=== PATIENT | male | born 1980 | race Caucasian/White ===

== ENCOUNTER 2018-06-09 16:58 | Emergency (ER) | payer MEDICAID ==
[2018-06-09 19:58] VITALS: BP 101/60
--- NOTE | 2018-06-09 20:15 | EDM.PDOC ---
ED HPI GENERAL MEDICAL PROBLEM - General Chief Complaint: General Stated Complaint: LYMES Time Seen by Provider: 06/09/18 19:50 Source of Information: Reports: Patient History Limitations: Reports: No Limitations - History of Present Illness INITIAL COMMENTS - FREE TEXT/NARRATIVE: 38-year-old male with generalized malaise, body aches and low-grade fevers which started 5-6 days after a tick was pulled off of his upper back. He has been diagnosed with Lyme's disease in the past and is sure it is redeveloping the disease. He is in for antibiotics, does not want testing as he is self-pay. No nausea or vomiting, no headache. Onset: Gradual Severity: Mild Associated Symptoms: Reports: Other (Generalized malaise and muscle aches are his main complaint ). Denies: Headaches, Nausea/Vomiting neck and generalized Pain Score (Numeric/FACES): 6 - Related Data Allergies Allergy/AdvReac Type Severity Reaction Status Date / Time No Known Allergies Allergy Verified 06/09/18 20:15 Home Meds: Home Meds NK [No Known Home Meds] 06/09/18 [History] Past Medical History - Past Health History Medical/Surgical History: Denies Medical/Surgical History ED ROS GENERAL - Review of Systems Review Of Systems: See Below Constitutional: Reports: Chills, Malaise HEENT: Reports: No Symptoms Respiratory: Denies: Shortness of Breath, Cough Cardiovascular: Denies: Chest Pain GI/Abdominal: Denies: Abdominal Pain, Nausea, Vomiting Musculoskeletal: Reports: Neck Pain, Muscle Pain, Muscle Stiffness Skin: Reports: Other Neurological: Denies: Headache Psychiatric: Reports: No Symptoms ED EXAM, GENERAL - Physical Exam Exam: See Below Exam Limited By: No Limitations General Appearance: Alert, No Apparent Distress Eye Exam: Bilateral Eye: Normal Inspection Head: Atraumatic Neck: Normal Inspection, Other (Some mild soreness with rotation). No: Lymphadenopathy (R), Lymphadenopathy (L) Respiratory/Chest: No Respiratory Distress Neurological: Alert, Oriented Psychiatric: Normal Affect, Normal Mood Skin Exam: Warm, Dry (No rash seen at this time) Course - Vital Signs Last Recorded V/S: Last Vital Signs Temp 98.0 F 06/09/18 20:18 Pulse 70 06/09/18 20:18 Resp 16 06/09/18 20:18 BP 101/60 06/09/18 20:18 Pulse Ox 96 06/09/18 20:18 - Re-Assessments/Exams Free Text/Narrative Re-Assessment/Exam: 06/09/18 20:14 Patient declined any lab work. He'll be placed on doxycycline 100 twice a day and given 20 day supply. He understands he needs to recheck in the next 4-6 days if worsening despite treatment. Departure - Departure Time of Disposition: 20:25 Disposition: Home, Self-Care 01 Condition: Good Clinical Impression: Acute Lyme disease - Discharge Information Instructions: Lyme Disease Referrals: PCP,None [Primary Care Provider] - Forms: ED Department Discharge Care Plan Goals: Take antibiotic twice a day for a full course if improving. Recheck in the next 4-6 days if not improving despite treatment, and return anytime if worsening.
== END 2018-06-09 20:25 | disposition home or self-care (01) ==
LOC: JP.ED 16:58
DX: A69.20 Lyme disease, unspecified (principal)
CPT/HCPCS: 99283

== ENCOUNTER 2020-03-11 16:40 | Emergency (ER) | payer SELFPAY ==
[2020-03-11 16:54] VITALS: BP 139/86; PULSE 111
[2020-03-11] MEDS ORDERED: LORazepam 1 MG Tab PO ONE (17:26)
--- NOTE | 2020-03-11 17:32 | EDM.PDOCBH ---
ED HPI GENERAL MEDICAL PROBLEM - General Chief Complaint: Behavioral/Psych Stated Complaint: PANIC ATTACK Time Seen by Provider: 03/11/20 17:26 Source of Information: Reports: Patient History Limitations: Reports: No Limitations - History of Present Illness INITIAL COMMENTS - FREE TEXT/NARRATIVE: pt arrived feeling very panicky. He has been making arrangements for his 19 year old son who was killed in a 4 bauer accident. He has been hyperventilating and he is having difficulty relaxing. He is having the fathers day. Onset: Gradual Duration: Day(s): Location: Reports: Generalized, Other (pt has been struggling since the accident. ) Associated Symptoms: Reports: Shortness of Breath, Weakness - Related Data Allergies Allergy/AdvReac Type Severity Reaction Status Date / Time No Known Allergies Allergy Verified 06/09/18 20:15 Home Meds: Home Meds NK [No Known Home Meds] 06/09/18 [History] Past Medical History - Past Health History Medical/Surgical History: Denies Medical/Surgical History Neurological History: Reports: Other (See Below) Other Neuro History: trigeminal neuroligia Dermatologic History: Reports: Cellulitis - Infectious Disease History Infectious Disease History: Reports: Chicken Pox Social & Family History - Tobacco Use Smoking Status *Q: Current Every Day Smoker Years of Tobacco use: 3 Packs/Tins Daily: 0.5 - Caffeine Use Caffeine Use: Reports: None - Recreational Drug Use Recreational Drug Use: No ED ROS GENERAL - Review of Systems Review Of Systems: See Below Constitutional: Reports: No Symptoms HEENT: Reports: No Symptoms Respiratory: Reports: Shortness of Breath Cardiovascular: Reports: No Symptoms Endocrine: Reports: No Symptoms GI/Abdominal: Reports: No Symptoms Psychiatric: Reports: Anxiety, Other (pt is having severe panic attacks. ) ED EXAM, BEHAVIORAL HEALTH - Physical Exam Exam: See Below Text/Narrative:: pt is here very panicky. He is not ablw to relax. He is planning the for his 19 year old son. Exam Limited By: No Limitations General Appearance: Alert, Anxious, Moderate Distress Ears: Normal TMs Nose: Normal Inspection Throat/Mouth: Normal Inspection Head: Atraumatic Neck: Normal Inspection Respiratory/Chest: No Respiratory Distress Cardiovascular: Regular Rate, Rhythm COURSE, BEHAVIORAL HEALTH COMP - Course Vital Signs: Last Vital Signs Temp 37.0 C 03/11/20 16:53 Pulse 111 H 03/11/20 16:53 Resp 18 03/11/20 16:53 BP 139/86 03/11/20 16:53 Pulse Ox 98 03/11/20 16:53 Orders, Labs, Meds: Medications Discontinued Medications Generic Name Dose Route Start Last Admin Trade Name Freq PRN Reason Stop Dose Admin Lorazepam 1 mg 03/11/20 17:26 03/11/20 17:30 Ativan PO 03/11/20 17:27 1 mg ONETIME ONE Administration Medical Clearance: 03/11/20 17:31 pt was given ativan 1 mg to get some relaxation. Departure - Departure Time of Disposition: 17:55 Disposition: Home, Self-Care 01 Condition: Fair Clinical Impression: Panic attack - Discharge Information Referrals: PCP,None [Primary Care Provider] - Forms: ED Department Discharge Care Plan Goals: pt will follow up with his regular Dr when the is over, ativan 1 mg q6h prn for marked anxiety. Sepsis Event Note (ED) - Evaluation Sepsis Screening Result: No Definite Risk - Focused Exam Vital Signs: Vital Signs Temp Pulse Resp BP Pulse Ox 03/11/20 16:53 37.0 C 111 H 18 139/86 98
== END 2020-03-11 18:03 | disposition home or self-care (01) ==
LOC: JP.ED 16:40
DX: F41.0 Panic disorder [episodic paroxysmal anxiety] (principal); F17.210 Nicotine dependence, cigarettes, uncomplicated
CPT/HCPCS: 99283; A9270

== ENCOUNTER 2023-08-23 21:53 | Emergency (ER) | payer SELFPAY ==
[2023-08-23 22:03] VITALS: BP 148/50; PULSE 97
[2023-08-23] MEDS ORDERED: Bacitracin Oint 1 GM U/D Packet TOP ONE (22:24)
[2023-08-23] MEDS ORDERED: Diphtheria,Pertussis(Acell),Tetanus Vaccine 0.5 ML Syringe IM ONE (22:24)
[2023-08-23] MEDS ORDERED: Lidocaine 1% with EPINEPHrine 1:100,000 50 ML MDV SUBCUT ONE (22:25)
== END 2023-08-23 23:58 | disposition home or self-care (01) ==
LOC: JP.ED 21:53 → MERGE 21:53 → JP.ED 23:58
DX: S51.812A Laceration without foreign body of left forearm, initial encounter (principal); F17.210 Nicotine dependence, cigarettes, uncomplicated; Z23 Encounter for immunization; W01.198A Fall on same level from slipping, tripping and stumbling with subsequent striking against other object, initial encounter
CPT/HCPCS: 12002; 90471; 90715; 99282-25